=== PATIENT | male | born 1990 | race Hispanic/Latino ===

== ENCOUNTER 2016-11-25 07:28 | Emergency (ER) | payer OTHER ==
[~2016-11-25] VITALS: Ht 172.7 cm; Wt 72.6 kg
--- NOTE | 2016-11-25 07:53 | ED AMS/SEIZURE/WEAK/DIZZY ---
History of Present Illness General Chief Complaint: General Adult Stated Complaint: BIBA ETOH Source: patient, old records, EMS Exam Limitations: intoxication Vital Signs & Intake/Output Vital Signs & Intake/Output Vital Signs Date Time Temp Pulse Resp B/P B/P Pulse O2 O2 Flow FiO2 Mean Ox Delivery Rate 11/25 1413 Room Air 11/25 1403 95.6 104 18 136/67 100 Room Air 11/25 1057 97.4 98 17 132/71 100 Room Air 11/25 0736 98 Room Air 11/25 0732 97.6 91 17 120/72 96 Room Air Allergies Coded Allergies: No Known Allergies (11/25/16) Reconcile Medications No Known Home Medications Triage Note: 26 Y/O MALE BIBA FOR EVAL OF ETOH. PER EMS, POLICE WERE CALLED TO [facility] FOR REPORT OF "INTOXICATED PATIENT ON PORCH". PT VOMITED EN ROUTE. ARRIVES ALERT AND ORIENTED WITH NO DISTRESS NOTED. STATES "I THINK I DRANK TOO MUCH". DENIES DRUG USE. DENIES OTHER COMPLAINTS. PLEASANT, CALM AND COOPERATIVE. AWAITING MD EVAL WITH NO ADDITIONAL COMPLAINTS OR NEEDS Triage Nurses Notes Reviewed? yes Onset: Just prior to arrival Duration: continues in ED Timing: recent history Injury Environment: street Severity: moderate No Modifying Factors: none HPI: Patient admits to alcohol and marijuana abuse. Prior to admission he was found on a strangers porch confused disoriented. He vomited en route. He currently denies fever chills nausea diarrhea abdominal pain chest pain shortness of breath headache dysuria rash bleeding. Past History Travel History Traveled to [place] past 21 day No Medical History Any Pertinent Medical History? none Neurological: NONE EENT: NONE Cardiovascular: NONE Respiratory: NONE Gastrointestinal: NONE Hepatic: NONE Renal: NONE Musculoskeletal: NONE Psychiatric: NONE Endocrine: NONE Blood Disorders: NONE Cancer(s): NONE PACKAGING LINE ATTENDANT/Reproductive: NONE Surgical History Surgical History: non-contributory Psychosocial History What is your primary language Marshallese Tobacco Use: Never used Illicit Drug Use: marijuana Family History Hx Contributory? No Review of Systems Review of Systems Constitutional: Reports: no symptoms. EENTM: Reports: no symptoms. Respiratory: Reports: no symptoms. Cardiovascular: Reports: no symptoms. GI: Reports: see HPI, vomiting. Genitourinary: Reports: no symptoms. Musculoskeletal: Reports: no symptoms. Skin: Reports: no symptoms. Neurological/Psychological: Reports: see HPI, confusion. Hematologic/Endocrine: Reports: no symptoms. Immunologic/Allergic: Reports: no symptoms. All Other Systems: Reviewed and Negative Physical Exam Physical Exam General Appearance: well developed/nourished, alert, awake, anxious, intoxicated , thin Head: atraumatic, normal appearance Eyes: Bilateral: normal appearance, PERRL, EOMI. Ears, Nose, Throat: normal pharynx, normal ENT inspection Neck: normal inspection, supple, full range of motion, no midline tenderness Respiratory: normal breath sounds, chest non-tender, no respiratory distress, quiet respiration, lungs clear Cardiovascular: regular rate/rhythm, normal peripheral pulses, norml femoral pulses equa Peripheral Pulses: 4+ carotid (R), 4+ carotid (L) Gastrointestinal: normal bowel sounds, soft, non-tender, no organomegaly Back: normal inspection, normal range of motion, no vertebral tenderness Extremities: normal range of motion, no ligament instability Neurologic/Psych: no motor/sensory deficits, awake, alert, normal gait, normal mood/affect, 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 Skin: intact, normal color, warm/dry Lymphatic: no anterior cervical hanh Core Measures ACS in differential dx? No CVA/TIA Diagnosis: No Severe Sepsis Present: No Septic Shock Present: No Progress Differential Diagnosis: alcohol intoxication, drug intoxication Plan of Care: Orders Procedure Date/time Status ETHANOL 11/25 0747 Complete Laboratory Tests 11/25/16 0752: Serum Alcohol 224.0 Initial ED EKG: none Departure Departure Time of Disposition: 1600 Disposition: HOME OR SELF CARE Condition: Stable Clinical Impression Primary Impression: Alcohol intoxication delirium Referrals: UNKNOWN (PCP) Departure Forms: General Discharge Information Prescriptions: Current Visit Scripts No Known Home Medications
[2016-11-25 14:03] VITALS: BP 136/67
== END 2016-11-25 16:01 ==
LOC: ERH 07:28
DX: F10.121 Alcohol abuse with intoxication delirium (principal)
CPT/HCPCS: G0480